=== PATIENT | male | born 1980 | race African-American/Black ===

== ENCOUNTER 2017-02-17 11:15 | Emergency (ER) | payer BC ==
[~2017-02-17] VITALS: Ht 172.7 cm; Wt 77.5 kg
[2017-02-17 11:18] VITALS: Ht 172.7 cm; Wt 77.5 kg
--- NOTE | 2017-02-17 14:01 | RADRPT ---
PROCEDURE: Lumbar spine series CLINICAL INDICATION: Back pain TECHNIQUE: Three views of the lumbar spine are available for review COMPARISON: None available FINDINGS: The normal lumbar lordosis is preserved. Alignment is intact. No acute fracture or dislocation is s een. Vertebral body heights are well maintained. There is mild disc height loss at L5-S1. Remainder of disc heights are well maintained. Paraspinous soft tissues are grossly unremarkable. IMPRESSION: 1. Mild degenerative change at L5-S1. 2. Otherwise unremarkable lumbar spine series. RPTAT: AA .Jori Galeas MD, MD Date Time Electronically viewed and signed by .Jori Galeas MD, on 02/17/2017 14:00 .B/
[2017-02-17] MEDS ORDERED: CYCL-319 PO (14:31)
[2017-02-17] MEDS ORDERED: IBUP-1542 PO (14:32)
--- NOTE | 2017-02-17 14:50 | ERD ---
ER Documentation Chief Complaint Date/Time DATE: 02/17/17 TIME: 14:35 Chief Complaint Complains of back pain x 2 weeks HPI Patient is a 36-year-old male who presents emergency department with complaints of back pain 2 weeks. Patient states he has had chronic back pain for many years now. Patient states over last 2-3 weeks his pain has gotten significantly worse. Patient describes the pain to be localized to his lower back and radiating down his left leg. Patient states his pain is worse with movement including when lying down to sitting up. Patient denies any recent trauma or falls. Patient does report lifting his younger kids often. Patient denies any stool incontinence, urine incontinence, dysuria, frequency, urgency, flank pain, hematuria, fever, chills. Patient denies any chest pain, shortness breath, nausea, vomiting. Denies any previous imaging studies. ROS All systems reviewed and are negative except as per history of present illness. Medications Home Meds Active Scripts Ibuprofen* (Motrin*) 600 Mg Tab, 600 MG PO Q6, #30 TAB Prov:NORMAN BAILEY PA-C 02/17/17 Cyclobenzaprine Hcl* (Cyclobenzaprine Hcl*) 10 Mg Tablet, 10 MG PO TID, #15 TAB Prov:NORMAN BAILEY PA-C 02/17/17 PMhx/Soc Medical and Surgical Hx: pt denies Medical Hx, pt denies Surgical Hx Physical Exam Vitals Vital Signs Date Time Temp Pulse Resp B/P Pulse Ox O2 Delivery O2 Flow Rate FiO2 02/17/17 11:18 98.4 104 20 141/80 98 Physical Exam GENERAL: Well-developed, well-nourished male. Appears in no acute distress. Speaking in full sentences. HEAD: Normocephalic, atraumatic. EYES: Pupils are equally reactive bilaterally. EOMs grossly intact. No conjunctival erythema. ENT: Moist mucous membranes. No uvula deviation. No kissing tonsils. NECK: Supple. No meningismus. Normal range of motion of the neck. LUNG: Clear to auscultation bilaterally. No rhonchi, wheezing, rales or coarse breath sounds. HEART: Regular rate and rhythm. No murmurs, rubs or gallops. BACK: No midline tenderness. Tender to palpation of left paraspinalis muscles. Negative straight leg raise bilaterally. No CVA tenderness bilaterally. EXTREMITIES: Equal pulses bilaterally. No peripheral clubbing, cyanosis or edema. No unilateral leg swelling. NEUROLOGIC: Alert and oriented. Moving all four extremities without any difficulty. Normal speech. Steady gait. SKIN: Normal color. Warm and dry. No rashes or lesions. Procedures/MDM ED COURSE: The patient was stable throughout ED course. I kept the patient and/or family informed of laboratory and diagnostic imaging results throughout the ED course. DIAGNOSTIC IMAGING: Read by radiologist. Patient: OANH LUNA : 1980 Age: 36 Sex: M MR #: [id number] DOS: 02/17/17 1319 Ordering MD: NORMAN BAILEY PA-C Location: [facility] Room/Bed: PROCEDURE: Lumbar spine series CLINICAL INDICATION: Back pain TECHNIQUE: Three views of the lumbar spine are available for review COMPARISON: None available FINDINGS: The normal lumbar lordosis is preserved. Alignment is intact. No acute fracture or dislocation is seen. Vertebral body heights are well maintained. There is mild disc height loss at L5-S1. Remainder of disc heights are well maintained. Paraspinous soft tissues are grossly unremarkable. IMPRESSION: 1. Mild degenerative change at L5-S1. 2. Otherwise unremarkable lumbar spine series. RPTAT: AA .Jori Galeas MD, MD Date Time Electronically viewed and signed by .Jori Galeas MD, MD on 2016 14:00 .B/ CC: NORMAN BAILEY PA-C MEDICAL DECISION MAKING: This is a 36-year-old male who presents the ED with concerns of back pain 2 weeks. Vital signs were reviewed. Patient was afebrile. Patient denied any saddle anesthesia, urinary incontinence, bowel incontinence, night pain or recent trauma. Lumbar series showed mild degenerative changes at L5-S1. Otherwise unremarkable lumbar spine series. Given these findings, the patients presentation is most consistent with degenerative changes of the spine. I have a much lower clinical concern for cauda equine syndrome, spinal fractures, epidural abscess, spinal metastases, osteomyelitis, aortic dissection, ruptured or leaking AA, pyelonephritis or nephrolithiasis. PRESCRIPTIONS: Ibuprofen Flexeril- Patient advised to take Flexeril only at rest. DISCHARGE: At this time, patient is stable for discharge and outpatient management. A copy of all imaging studies given to the patient. RICE therapy and ROM exercises were advised to avoid stiffness. I have instructed the patient to follow-up with his/her primary care physician in 1-2 days. I have discussed with the patient the possibility of needing to see an graphics production specialist for further workup and imaging if the pain persists. I have instructed the patient to promptly return to the ER for any new or worsening symptoms including increased pain, swelling, warmth, urinary incontinence, stool incontinence, weakness or numbness. The patient and/or family expressed understanding of and agreement with this plan. All questions were answered. Home care instructions were provided. Disclaimer: Inadvertent spelling and grammatical errors are likely due to EHR/ dictation software use and do not reflect on the overall quality of patient care. Also, please note that the electronic time recorded on this note does not necessarily reflect the actual time of the patient encounter. Departure Diagnosis: Primary Impression: Back pain Back pain location: back pain in unspecified location Chronicity: unspecified Back pain laterality: unspecified Qualified Code: M54.9 - Back pain, unspecified back location, unspecified back pain laterality, unspecified chronicity Condition: Stable Patient Instructions: Back Pain (Acute Or Chronic) Referrals: [facility] YOU HAVE RECEIVED A MEDICAL SCREENING EXAM AND THE RESULTS INDICATE THAT YOU DO NOT HAVE A CONDITION THAT REQUIRES URGENT TREATMENT IN THE EMERGENCY DEPARTMENT. FURTHER EVALUATION AND TREATMENT OF YOUR CONDITION CAN WAIT UNTIL YOU ARE SEEN IN YOUR DOCTORS OFFICE WITHIN THE NEXT 1-2 DAYS. IT IS YOUR RESPONSIBILITY TO MAKE AN APPOINTMENT FOR FOLOW-UP CARE. IF YOU HAVE A PRIMARY DOCTOR --you should call your primary doctor and schedule an appointment IF YOU DO NOT HAVE A PRIMARY DOCTOR YOU CAN CALL OUR PHYSICIAN REFERRAL HOTLINE AT IF YOU CAN NOT AFFORD TO SEE A PHYSICIAN YOU CAN CHOSE FROM THE FOLLOWING [facility] [address] [facility]. [facility] [address] [facility] [facility] [address] [facility]. [facility] [address] [facility] [facility] [address] [facility]. [facility]. [address] [facility]. [facility] YOU HAVE RECEIVED A MEDICAL SCREENING EXAM AND THE RESULTS INDICATE THAT YOU DO NOT HAVE A CONDITION THAT REQUIRES URGENT TREATMENT IN THE EMERGENCY DEPARTMENT. FURTHER EVALUATION AND TREATMENT OF YOUR CONDITION CAN WAIT UNTIL YOU ARE SEEN IN YOUR DOCTORS OFFICE WITHIN THE NEXT 1-2 DAYS. IT IS YOUR RESPONSIBILITY TO MAKE AN APPOINTMENT FOR FOLOW-UP CARE. IF YOU HAVE A PRIMARY DOCTOR --you should call your primary doctor and schedule and appointment IF YOU DO NOT HAVE A PRIMARY DOCTOR YOU CAN CALL OUR PHYSICIAN REFERRAL HOTLINE AT . IF YOU CAN NOT AFFORD TO SEE A PHYSICIAN YOU CAN CHOSE FROM THE FOLLOWING [facility] INSTITUTIONS: [facility] [address] [place] [address] [facility] [address] [place] [address] [facility] + [facility] [address] [place] [address] [facility] Hours: Mon-Fri 9:00 AM - 5:00 PM Additional Instructions: Call your primary care doctor TOMORROW for an appointment during the next 1-2 days.See the doctor sooner or return here if your condition worsens before your appointment time. NORMAN BAILEY PA-C Feb 17, 2017 14:49
== END 2017-02-17 15:07 | disposition home or self-care (01) ==
LOC: FTE 11:15
DX: M54.5 Low back pain (principal)
CPT/HCPCS: 72100; Z7502